=== PATIENT | female | born 1985 | race African-American/Black ===

== ENCOUNTER 2019-04-12 14:51 | Emergency (ER) | payer MEDICAID ==
[~2019-04-12] VITALS: Ht 157.5 cm; Wt 95.0 kg
[~2019-04-12 14:51] MED LIST: ALBUTEROL
[2019-04-12 17:21] VITALS: BP 176/86
[2019-04-12 19:38] LABS: CLARITY URINE CLEAR (CLEAR); COLOR URINE YELLOW (YELLOW); KETONES URINE TRACE (NEGATIVE); LEUKOCYTE ESTERASE URINE NEGATIVE (NEGATIVE); NITRITE URINE NEGATIVE (NEGATIVE); OCCULT BLOOD URINE NEGATIVE (NEGATIVE); PH URINE 5.5 (4.5-8.0); PROTEIN URINE NEGATIVE (NEGATIVE); UROBILINOGEN URINE 0.2 E.U./dL (0.2-1.0)
[2019-04-12 20:22] LABS: BASOPHILS % 1.1 % (0.0-2.0); EOSINOPHILS % 2.2 % (0.0-5.0); HEMATOCRIT. 40.3 % (36.0-48.0); HEMOGLOBIN. 13.7 g/dL (12.0-16.0); LYMPHOCYTES % 47.5 % (20.0-50.0); MEAN CORPUSCULAR HEMOGLOBIN 31.2 pg (28.0-32.0); MEAN PLATELET VOLUME 11.2 fl (7.4-10.4); MONOCYTES % 7.2 % (2.0-8.0); PLATELET 169 x1000/uL (130-400); RED BLOOD CELL COUNT 4.38 mill/uL (4.2-5.4); RED CELL DISTRIBUTION WIDTH 13.7 % (11.6-14.6)
[2019-04-12 20:27] LABS: CHLORIDE 109 mEq/L (98-107)
[2019-04-12 20:49] LABS: B-HCG QUANTITATIVE 1179 mIU/mL (<3)
== END 2019-04-12 21:56 | disposition home or self-care (01) ==
LOC: ER 14:51
DX: O20.0 Threatened abortion (principal); Z3A.01 Less than 8 weeks gestation of pregnancy
CPT/HCPCS: 36415; 76801; 81003; 81025; 84702; 86850; 86900; 99283

== ENCOUNTER 2021-05-19 06:15 | Inpatient (IN) | payer MEDICAID ==
[~2021-05-19] VITALS: Ht 157.5 cm; Wt 115.7 kg
[2021-05-19] MEDS ORDERED: PREN-182 PO (06:57)
[2021-05-19] MEDS ORDERED: METHYLERGONOVINE MALEATE 0.2 MG/ML IM PRN (07:45)
[2021-05-19] MEDS ORDERED: RHO(D) IMMUNE GLOBULIN 300 MCG/SYR IM SCH (07:45)
[2021-05-19] MEDS ORDERED: CARBOPROST TROMETHAMINE 250 MCG/ML AMPUL IM PRN (07:45)
[2021-05-19] MEDS ORDERED: DEXT 5%/LR + PITOCIN 20UNITS/L 1,000 ML IV SCH ×2 (07:45→21:30)
[2021-05-19] MEDS ORDERED: NALOXONE HCL 0.4 MG/ML 1ML VIAL IM PRN (07:45)
[2021-05-19] MEDS ORDERED: MISOPROSTOL 100MCG TABLET VG SCH (07:45)
[2021-05-19] MEDS ORDERED: BUTORPHANOL TARTRATE 2 MG/ML VIAL IV PRN (07:45)
[2021-05-19] MEDS ORDERED: LIDOCAINE HCL 1% 20ML VIAL (Pyxis) INJ INFIL SCH (07:45)
[2021-05-19 09:10] LABS: BASOPHILS % 0.4 % (0.0-2.0); EOSINOPHILS % 1.1 % (0.0-5.0); HEMATOCRIT. 35.3 % (36.0-48.0); HEMOGLOBIN. 11.6 g/dL (12.0-16.0); LYMPHOCYTES % 19.4 % (20.0-50.0); MEAN CORPUSCULAR VOLUME 90.9 fL (81.0-99.0); MEAN PLATELET VOLUME 10.8 fl (7.4-10.4); MONOCYTES % 8.4 % (2.0-8.0); NEUTROPHILS % 70.7 % (40.0-76.0); PLATELET 173 x1000/uL (130-400); RED BLOOD CELL COUNT 3.88 mill/uL (4.2-5.4); RED CELL DISTRIBUTION WIDTH 14.2 % (11.6-14.6)
[2021-05-19] MEDS ORDERED: ROPIVACAINE HCL/PF EPIDURAL 200 ML EP SCH (09:15)
[2021-05-19 09:25] LABS: CLARITY URINE CLEAR (CLEAR); COLOR URINE YELLOW (YELLOW); KETONES URINE NEGATIVE (NEGATIVE); LEUKOCYTE ESTERASE URINE NEGATIVE (NEGATIVE); NITRITE URINE NEGATIVE (NEGATIVE); OCCULT BLOOD URINE TRACE (NEGATIVE); PH URINE 6.5 (4.5-8.0); PROTEIN URINE NEGATIVE (NEGATIVE); UROBILINOGEN URINE 0.2 E.U./dL (0.2-1.0)
[2021-05-19 09:31] LABS: PARTIAL THROMBOPLASTIN TIME 30.1 sec (23.4-31.0); PROTHROMBIN TIME 10.4 sec (9.6-11.0)
[2021-05-19 09:48] LABS: *AMPHETAMINES SCREEN URINE NEGATIVE (NEGATIVE); *BARBITURATES SCREEN URINE NEGATIVE (NEGATIVE); *BENZODIAZEPINES SCREEN URINE NEGATIVE (NEGATIVE); *COCAINE SCREEN URINE NEGATIVE (NEGATIVE); METHADONE URINE SCREEN NEGATIVE (NEGATIVE)
[2021-05-19 09:49] LABS: CANNABINOID URINE SCREEN NEGATIVE (NEGATIVE); OPIATES URINE SCREEN NEGATIVE (NEGATIVE); PHENCYCLIDINE URINE SCREEN NEGATIVE (NEGATIVE)
[2021-05-19] MEDS ORDERED: FENTANYL CITRATE/PF 50MCG/ML 2ML VIAL ONE ×3 (10:15→19:04)
[2021-05-19 11:38] LABS: HEPATITIS B SURFACE ANTIGEN NEGATIVE
[2021-05-19] MEDS: LACTATED RINGERS 1,000 ML IV SCH ×2 (12:36→18:45)
[2021-05-19] MEDS ORDERED: ACETAMINOPHEN 325MG TABLET PO PRN ×2 (18:30)
[2021-05-19] MEDS ORDERED: AMPICILLIN 2,000 MG in SODIUM CHLORIDE 0.9% 100 ML IV SCH (19:30)
[2021-05-19] MEDS ORDERED: BISACODYL 10MG SUPP PR PRN (21:15)
[2021-05-19] MEDS ORDERED: LANOLIN OINT 7GM TUBE TOP PRN (21:15)
[2021-05-19] MEDS ORDERED: GLYCERIN/WITCH HAZEL LEAF MEDICATED PAD TOP PRN (21:15)
[2021-05-19] MEDS ORDERED: HEMORRHOIDAL SUPP PR PRN (21:15)
[2021-05-19] MEDS ORDERED: BENZOCAINE/LANOLIN/ALOE VERA SPRAY TOP PRN (21:15)
[2021-05-19] MEDS ORDERED: DIPHENHYDRAMINE 25MG CAPSULE PO PRN (21:15)
[2021-05-19] MEDS ORDERED: IBUPROFEN 400MG TABLET PO PRN (21:15)
[2021-05-19] MEDS: ACETAMINOPHEN WITH CODEINE 300/30MG TABLET PO PRN (22:13)
[2021-05-19 23:30] VITALS: BP 141/77
[2021-05-20 00:01] VITALS: BP 141/66
[2021-05-20] MEDS: ACETAMINOPHEN WITH CODEINE 300/30MG TABLET PO PRN ×3 (01:19→19:54)
[2021-05-20 04:45] VITALS: BP 149/89
[2021-05-20 06:40] LABS: BASOPHILS % 0.2 % (0.0-2.0); EOSINOPHILS % 0.8 % (0.0-5.0); HEMATOCRIT. 37.4 % (36.0-48.0); HEMOGLOBIN. 11.9 g/dL (12.0-16.0); LYMPHOCYTES % 17.5 % (20.0-50.0); MEAN CORPUSCULAR HEMOGLOBIN 29.7 pg (28.0-32.0); MEAN CORPUSCULAR VOLUME 93.1 fL (81.0-99.0); MEAN PLATELET VOLUME 10.8 fl (7.4-10.4); MONOCYTES % 7.6 % (2.0-8.0); NEUTROPHILS % 73.9 % (40.0-76.0); PLATELET 151 x1000/uL (130-400); RED BLOOD CELL COUNT 4.01 mill/uL (4.2-5.4); RED CELL DISTRIBUTION WIDTH 14.9 % (11.6-14.6)
[2021-05-20 07:30] VITALS: BP 132/80
[2021-05-20] MEDS: MAGNESIUM/ALUMINUM HYDROXIDE/SIMETHICONE 30ML UDC PO SCH ×2 (07:30→20:25)
[2021-05-20] MEDS: FERROUS SULFATE 325MG TABLET PO SCH (07:30)
[2021-05-20] MEDS: PRENATAL VIT/FE FUMARATE/FA TABLET PO SCH (09:00)
[2021-05-20] MEDS ORDERED: SODIUM CHLORIDE 0.9% 10ML VIAL ONE (10:08)
[2021-05-20 12:30] VITALS: BP 132/81
[2021-05-20] MEDS ORDERED: PROPOFOL 200MG/20ML VIAL IV ONE ×2 (12:44→13:11)
[2021-05-20] MEDS ORDERED: SUCCINYLCHOLINE CHLORIDE 200MG/10ML IV ONE (12:45)
[2021-05-20] MEDS ORDERED: LIDOCAINE HCL/PF 1% 10 MG/ML 5ML VIAL ONE (12:46)
[2021-05-20] MEDS ORDERED: FENTANYL CITRATE/PF 50MCG/ML 2ML VIAL ONE (12:47)
[2021-05-20] MEDS ORDERED: ONDANSETRON HCL 4MG/2ML INJ ONE (13:20)
[2021-05-20] MEDS ORDERED: CEFAZOLIN SODIUM 1000MG/VIAL ONE (13:25)
[2021-05-20] MEDS ORDERED: HYDROMORPHONE HCL/PF 2MG/ML (OR) ONE (13:30)
[2021-05-20] MEDS ORDERED: KETOROLAC 60MG/2ML VIAL IM ONE (13:45)
[2021-05-20] MEDS: HYDROMORPHONE HCL/PF 2MG/ML CPJ IV PRN ×2 (14:15→14:56)
[2021-05-20] MEDS: LABETALOL HCL 100MG TABLET PO SCH (14:17)
[2021-05-20 15:45] VITALS: BP 132/88
[2021-05-20] MEDS: IBUPROFEN 800MG TABLET PO PRN (19:48)
[2021-05-20 20:00] VITALS: BP 122/62
[2021-05-20] MEDS: SIMETHICONE 80MG TABLET CHEW PO SCH (20:26)
[2021-05-20] MEDS ORDERED: DOCUSATE SODIUM 100MG CAPSULE PO SCH (21:00)
[2021-05-21] VITALS: BP 117/56
[2021-05-21] MEDS: ACETAMINOPHEN WITH CODEINE 300/30MG TABLET PO PRN ×2 (02:22→09:10)
[2021-05-21] MEDS: LABETALOL HCL 100MG TABLET PO SCH (02:22)
[2021-05-21 04:00] VITALS: BP 119/58
[2021-05-21 08:00] VITALS: BP 127/73
[2021-05-21] MEDS: SIMETHICONE 80MG TABLET CHEW PO SCH (08:20)
[2021-05-21] MEDS: FERROUS SULFATE 325MG TABLET PO SCH (08:58)
[2021-05-21] MEDS: PRENATAL VIT/FE FUMARATE/FA TABLET PO SCH (08:58)
[2021-05-21] MEDS: MAGNESIUM/ALUMINUM HYDROXIDE/SIMETHICONE 30ML UDC PO SCH (08:59)
[2021-05-21] MEDS: IBUPROFEN 800MG TABLET PO PRN (08:59)
[2021-05-21 09:10] VITALS: BP 119/58
== END 2021-05-21 13:10 | disposition home or self-care (01) | DRG 541 ==
LOC: OBSVTOIN 06:15 → 8 EST LDRP 06:15 → 8EST 23:09
PROVIDERS: ADMIT Obstetrics & Gynecology; ATTEND Obstetrics & Gynecology
PROC: 10E0XZZ Delivery of Products of Conception, External Approach (ICD-10-PCS; 2021-05-19)
PROC: 0UB70ZZ Excision of Bilateral Fallopian Tubes, Open Approach (ICD-10-PCS; principal; 2021-05-20)
DX: O69.81X0 Labor and delivery complicated by cord around neck, without compression, not applicable or unspecified (principal); Z37.0 Single live birth; Z30.2 Encounter for sterilization; Z3A.39 39 weeks gestation of pregnancy
CPT/HCPCS: 36415; 80305; 81003; 85025; 86592; 86703; 86762; 86850; 86900; 87340; 88302; J0290; J0330; J0595; J0690; J1170; J1885; J2405; J2590; J2704; J3010; J3490; J7050; J7120